=== PATIENT | female | born 1980 | race Caucasian/White ===

== ENCOUNTER → 2022-05-13 12:43 | Outpatient (CLI) | payer OTHER, SELFPAY ==
--- NOTE | 2022-05-13 | DI.ECHO.S_ITS ---
[facility] +---------+ : : [address] : : [place] : : : : [id number] : : : : Phone: [phone]---------+ Echocardiogram Report + + :Name: FERNANDO SEPULVEDA Study Date: 05/13/2022 Height: 61 in : [facility] ReadingLocation: Weight: 145 lb : : Gender: Female BSA: 1.6 m2 : :: 1980 Age: 41 yrs BP: 109/72 mmHg: :Reason For Study: CHEST PAIN, CARDIAC MURMUR : :Ordering Physician: ANGEL, : :DAVID Performed By: Sylvai Paz : :Referring: DAVID GONZALES : + + Interpretation Summary 1) Normal left ventricular thickness, size, wall motion, and systolic function (EF 55-60%). 2) Normal right ventricular size and function. 3) No significant valvular abnormalities. 4) No prior Echo available for comparison. Procedure: A two-dimensional transthoracic echocardiogram with color flow and Doppler was performed. The study quality was technically adequate. There is no prior echocardiogram noted for this patient. The patient was in sinus rhythm with heart rates between 62-79 bpm during the exam. Left Ventricle: The left ventricle is normal in size and wall thickness. The ejection fraction is estimated to be 55-60%. Left ventricular systolic function appears normal without focal wall motion abnormalities. Diastolic parameters suggest probable normal left ventricular diastolic function and normal filling pressures. Right Ventricle: The right ventricle is normal in size and function. Atria: The left atrial size is normal. Right atrial size is normal. There is no Doppler evidence for an interatrial shunt. Mitral Valve: The mitral valve is normal in structure and function. There is trace mitral regurgitation. Aortic Valve: The aortic valve is trileaflet. The aortic valve opens well. There is no aortic valve stenosis. No aortic regurgitation is present. Tricuspid Valve: The tricuspid valve is normal in structure and function. There is mild tricuspid regurgitation. The right ventricular systolic pressure is estimated to be at least 28 mmHg based on an estimated right atrial pressure of 3 mm Hg. Pulmonic Valve: The pulmonic valve leaflets are thin and pliable; valve motion is normal. There is mild pulmonic regurgitation. Great Vessels: The aortic root is normal size. The dimensions of the ascending aorta are normal. The IVC is of normal diameter and collapses greater than 50% with a sniff. This suggests a low right atrial pressure of 3 mm Hg. Pericardium/ Pleura There is no pericardial effusion. There is no pleural effusion. MMode/2D Measurements & Calculations LVIDd: 4.8 cm LVOT diam: 1.9 cm LVIDs: 3.3 cm Ao root diam: 2.5 cm FS: 31.1 % asc Aorta Diam: 2.6 cm EPSS: 0.69 cm Ao Arch Diam (Prox Trans): 2.2 cm IVSd: 0.67 cm LVPWd: 0.62 cm LV chen. diameter/BSA (cm/m^2): 2.9 LV sys. diameter/BSA (cm/m^2): 2.0 LA A2 area: 15.2 cm2 RA long axis: 4.8 cm LA A4 area: 17.1 cm2 RA area: 14.1 cm2 LA length (vol): 4.9 cm RA vol: 35.3 ml LA vol: 44.5 ml RA : 21.4 ml/m2 LA vol index: 27.0 ml/m2 IVC diam: 1.3 cm RVD1 (basal): 3.8 cm RVD2 (mid): 2.9 cm TAPSE: 3.0 cm Doppler Measurements & Calculations Ao V2 max: 160.4 cm/sec LVOT Max Blanco: 106.2 cm/sec Ao V2 mean: 103.8 cm/sec LV V1 max P.5 mmHg Ao max P.3 mmHg LV V1 VTI: 20.4 cm Ao mean P.2 mmHg SHELBIE(I,D): 1.8 cm2 Ao V2 VTI: 34.0 cm SHELBIE(V,D): 1.9 cm2 sev ratio: 0.60 SHELBIE indexed to BSA (cm^2/m^2): 1.1 MV E max blanco: 93.8 cm/sec TR max blanco: 249.7 cm/sec MV A max blanco: 58.4 cm/sec TR max P.9 mmHg MV E/A: 1.6 PA V2 max: 136.6 cm/sec Med Peak E' Blanco: 13.9 cm/sec PA V2 mean: 88.6 cm/sec E/E' med: 6.7 PA mean P.7 mmHg Lat Peak E' Blanco: 18.1 cm/sec PA pr(Accel): 20.8 mmHg E/E' lat: 5.2 E/e' average: 6.0 MV dec time: 0.21 sec SV(LVOT): 60.0 ml Reading Physician:10:45 AM
[2022-05-13 13:56] LABS: COVID19 -Nasal RAPID Negative (Negative)
--- NOTE | 2022-05-15 04:26 | DI.NM.S_ITS ---
DATE OF SERVICE: 05/13/2022 PROCEDURE PERFORMED: Exercise treadmill stress test without imaging. ORDERING PROVIDER: Dr. Jayjay Gonzales. INDICATIONS: The patient is a 41-year-old female with a history of palpitations and second-degree AV block. FINDINGS: 1. The patient was able to exercise for 10 minutes, 27 seconds on a standard Lalit protocol suggesting good exercise capacity with an RITA of -17%, achieving 12.8 METs. 2. She had a normal heart rate and blood pressure response to exercise, achieving a maximal heart rate of 174 BPM (96% of her predicted maximum). 3. She had no chest pain or anginal symptoms with exercise. It is notable that she complained of palpitations while on the treadmill without any demonstrable arrhythmias on the ECG. 4. Her resting ECG shows normal sinus rhythm with normal ST segments. With exercise, there were no significant ST-segment shifts or arrhythmias. IMPRESSION: 1. Normal exercise treadmill study for ischemia. 2. Good exercise capacity without angina or arrhythmias despite the patient's subjective sensation of palpitations. Uma Ruggiero - SHEILA/paulo/sharan doc#: [id number]/job#: [id number] dd: 05/14/2022 17:09:00 dt: 05/15/2022 04:08:00 DICTATING /COPIES TO: Francisco Selby MD COPIES MNE: OLGA;
== END ==
PROVIDERS: PCP Nurse Practitioner Family; Referring Provider Internal Medicine Cardiovascular Disease; Visit Provider Internal Medicine Cardiovascular Disease
DX: I07.1 Rheumatic tricuspid insufficiency (principal); I37.1 Nonrheumatic pulmonary valve insufficiency; R07.9 Chest pain, unspecified; R01.1 Cardiac murmur, unspecified; Z20.822 Contact with and (suspected) exposure to COVID-19
CPT/HCPCS: 87635; 93017; 93306